=== PATIENT | male | born 2000 | race Caucasian/White ===

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

== ENCOUNTER 2019-01-30 00:46 | Emergency (ER) | payer SELFPAY ==
[~2019-01-30] VITALS: Ht 167.6 cm; Wt 73.5 kg
[2019-01-30 00:54] VITALS: Ht 167.6 cm; Wt 73.5 kg
[2019-01-30 02:53] VITALS: BP 137/60
== END 2019-01-30 02:53 | disposition home or self-care (01) ==
LOC: ED 00:46
DX: K59.00 Constipation, unspecified (principal); F41.9 Anxiety disorder, unspecified; Z88.0 Allergy status to penicillin
CPT/HCPCS: 87491; 87591